=== PATIENT | male | born 1960 | race Caucasian/White ===

== ENCOUNTER 2019-11-15 10:33 | Outpatient (CLI) | payer MEDICARE, OTHER ==
[~2019-11-15 10:33] MED LIST: ASPI-605 PO; IBUP200C5 PO; TAMS-12 PO; VALS80TA2 PO
== END 2019-11-15 23:59 | disposition home or self-care (01) ==
LOC: MSC 10:33
PROVIDERS: ATTEND Anesthesiology
DX: M50.10 Cervical disc disorder with radiculopathy, unspecified cervical region (principal); M79.602 Pain in left arm; M46.96 Unspecified inflammatory spondylopathy, lumbar region; M47.27 Other spondylosis with radiculopathy, lumbosacral region; M51.26 Other intervertebral disc displacement, lumbar region; E11.9 Type 2 diabetes mellitus without complications; I10 Essential (primary) hypertension; M79.605 Pain in left leg; M79.604 Pain in right leg; Z79.1 Long term (current) use of non-steroidal anti-inflammatories (NSAID)

== ENCOUNTER → 2020-04-17 | Outpatient (CLI) | payer MEDICARE, OTHER | END | disposition home or self-care (01) | LOC: MSC 10:20 | PROVIDERS: ATTEND Anesthesiology | DX: M50.10 Cervical disc disorder with radiculopathy, unspecified cervical region (principal); M46.96 Unspecified inflammatory spondylopathy, lumbar region; M51.26 Other intervertebral disc displacement, lumbar region; M47.27 Other spondylosis with radiculopathy, lumbosacral region; M79.2 Neuralgia and neuritis, unspecified; M79.606 Pain in leg, unspecified ==

== ENCOUNTER → 2020-05-08 | Outpatient (CLI) | payer MEDICARE, OTHER | END | disposition home or self-care (01) | LOC: MSC 13:55 | PROVIDERS: ATTEND Anesthesiology | DX: M50.10 Cervical disc disorder with radiculopathy, unspecified cervical region (principal); M46.96 Unspecified inflammatory spondylopathy, lumbar region; M51.26 Other intervertebral disc displacement, lumbar region; M47.27 Other spondylosis with radiculopathy, lumbosacral region; M79.2 Neuralgia and neuritis, unspecified; M79.606 Pain in leg, unspecified; Z79.1 Long term (current) use of non-steroidal anti-inflammatories (NSAID) ==

== ENCOUNTER 2020-11-27 10:23 | Outpatient (CLI) | payer MEDICARE, OTHER | END 2020-11-27 23:59 | disposition home or self-care (01) | LOC: MSC 10:23 | PROVIDERS: ATTEND Anesthesiology | DX: M51.26 Other intervertebral disc displacement, lumbar region (principal); M46.96 Unspecified inflammatory spondylopathy, lumbar region; M47.27 Other spondylosis with radiculopathy, lumbosacral region; M50.10 Cervical disc disorder with radiculopathy, unspecified cervical region; Z98.890 Other specified postprocedural states; M79.2 Neuralgia and neuritis, unspecified; M79.606 Pain in leg, unspecified; Z83.3 Family history of diabetes mellitus; Z82.49 Family history of ischemic heart disease and other diseases of the circulatory system; Z79.84 Long term (current) use of oral hypoglycemic drugs; Z79.891 Long term (current) use of opiate analgesic; Z79.1 Long term (current) use of non-steroidal anti-inflammatories (NSAID); Z79.899 Other long term (current) drug therapy ==

== ENCOUNTER 2021-10-15 09:30 | Outpatient (CLI) | payer MEDICARE, OTHER | END 2021-10-15 23:59 | disposition home or self-care (01) | LOC: MSC 09:30 | PROVIDERS: ATTEND Anesthesiology | DX: M46.96 Unspecified inflammatory spondylopathy, lumbar region (principal); M51.26 Other intervertebral disc displacement, lumbar region; M47.27 Other spondylosis with radiculopathy, lumbosacral region; M50.10 Cervical disc disorder with radiculopathy, unspecified cervical region; M79.606 Pain in leg, unspecified; M79.2 Neuralgia and neuritis, unspecified; Z79.891 Long term (current) use of opiate analgesic; Z79.1 Long term (current) use of non-steroidal anti-inflammatories (NSAID); Z83.3 Family history of diabetes mellitus; Z82.49 Family history of ischemic heart disease and other diseases of the circulatory system; Z79.84 Long term (current) use of oral hypoglycemic drugs; Z79.899 Other long term (current) drug therapy ==

== ENCOUNTER 2024-11-03 09:21 | Inpatient (IN) | payer MEDICARE, OTHER ==
[~2024-11-03] VITALS: Ht 182.9 cm; Wt 99.1 kg
[2024-11-03] MEDS ORDERED: dexaMETHasone SOD PHOSPHATE 1 ML ONE (10:25)
[2024-11-03] MEDS ORDERED: VANCOMYCIN 1 GM VIAL ONE (10:25)
[2024-11-03] MEDS ORDERED: LIDOCAINE 2%-EPI 1:100,000 30 ML VIAL ONE (10:25)
[2024-11-03] MEDS ORDERED: LABETALOL HCL IV 100MG VIAL ONE (10:51)
[2024-11-03] MEDS ORDERED: SEVOFLURANE 250 ML BOTTLE IH ONE (10:51)
[2024-11-03] MEDS ORDERED: IV NS 0.9% 1,000 ML IV PRN (13:30)
[2024-11-03] MEDS ORDERED: ONDANSETRON HCL/PF 4 MG/2 ML VIAL IV PRN (13:30)
[2024-11-03] MEDS ORDERED: hydrALAZINE HCL IV 20 MG VIAL IV PRN (13:30)
[2024-11-03] MEDS ORDERED: ACETAMINOPHEN 325 MG TABLET PO PRN (13:30)
[2024-11-03] MEDS: ACETAMINOPHEN 325 MG TABLET PO PRN (15:41)
[2024-11-03 16:00] VITALS: BP 128/68; TEMP 97.4; O2SAT 98
[2024-11-03] MEDS ORDERED: DEXTROSE 50%-WATER 50 ML DISP.SYRIN IV PRN (18:00)
[2024-11-03] MEDS: HYDROMORPHONE INJ 2 MG/ML DISP.SYRIN IV PRN (19:05)
[2024-11-03 20:00] VITALS: BP 132/71; TEMP 98.3; O2SAT 99
[2024-11-03] MEDS: VANCOMYCIN 1 GM in IV D5W 250ml IV SCH (21:10)
[2024-11-03] MEDS: TAMSULOSIN 0.4 MG CAP.SR.24H PO SCH (21:11)
[2024-11-03] MEDS: BLOOD SUGAR DIAGNOSTIC 1 EACH STRIP IN SCH (21:24)
[2024-11-03] MEDS: INSULIN REGULAR, HUMAN 100 UNIT/ML 3 ML VIAL SQ PRN (21:30)
[2024-11-04 06:53] LABS: BASOPHILS % (AUTO) 0.1 % (0.0-2.0); EOSINOPHILS % (AUTO) 0.2 % (0.0-6.0); HEMATOCRIT 38 % (39-51); HEMOGLOBIN 13.2 g/dL (13.5-17.5); LYMPHOCYTES # (AUTO) 1.3 K/uL (0.8-4.8); LYMPHOCYTES % (AUTO) 8.4 % (20.0-44.0); MEAN CORPUSCULAR HEMOGLOBIN 32 PG (26.0-33.0); MEAN CORPUSCULAR HGB CONC 35 g/dl (31.0-36.0); MEAN CORPUSCULAR VOLUME 90 fL (80-96); MONOCYTES # (AUTO) 0.7 K/uL (0.1-1.30); MONOCYTES % (AUTO) 4.4 % (2.0-12.0); NEUTROPHILS # (AUTO) 13.5 K/uL (1.8-8.9); NEUTROPHILS % (AUTO) 86.9 % (43.0-81.0); PLATELET COUNT (AUTO) 245 K/uL (150-450); RED BLOOD CELL COUNT(AUTO) 4.19 MIL/uL (4.5-6.0); RED CELL DISTRIBUTION WIDTH 12.9 % (11.5-15.0); WHITE BLOOD COUNT (AUTO) 15.6 K/uL (4.3-11.0)
[2024-11-04 07:06] LABS: ALBUMIN 3.7 g/dL (3.4-5.0); BILIRUBIN,TOTAL 0.6 mg/dL (0.2-1.0); CALCIUM, SERUM 8.7 mg/dL (8.5-10.1); CREATININE 1.3 mg/dL (0.6-1.3); MAGNESIUM 1.9 mg/dL (1.8-2.4); PHOSPHORUS 2.8 mg/dL (2.5-4.9); POTASSIUM 3.4 mmol/L (3.5-5.1)
[2024-11-04] MEDS: POTASSIUM CHLORIDE 20 MEQ TAB.PRT.SR PO ONE (07:45)
[2024-11-04 08:00] VITALS: BP 131/62; TEMP 97.5; O2SAT 97
[2024-11-04] MEDS: ASPIRIN EC 81 MG TABLET.DR PO SCH (09:05)
[2024-11-04 09:06] VITALS: BP 131/62
[2024-11-04] MEDS: VALSARTAN 80 MG TABLET PO SCH (09:06)
== END 2024-11-04 11:00 | disposition home health service (06) | DRG 908 ==
LOC: DS 09:21 → MED 13:13
PROVIDERS: ADMIT Internal Medicine; ATTEND Internal Medicine
PROC: 0NSR04Z Reposition Maxilla with Internal Fixation Device, Open Approach (ICD-10-PCS; principal; 2024-11-03 13:00)
DX: T86.831 Bone graft failure (principal); S02.40CK Maxillary fracture, right side, subsequent encounter for fracture with nonunion; S02.40DK Maxillary fracture, left side, subsequent encounter for fracture with nonunion; M27.2 Inflammatory conditions of jaws; E78.5 Hyperlipidemia, unspecified; E11.9 Type 2 diabetes mellitus without complications; I10 Essential (primary) hypertension; M60.88 Other myositis, other site; M27.49 Other cysts of jaw; D16.4 Benign neoplasm of bones of skull and face; N40.0 Benign prostatic hyperplasia without lower urinary tract symptoms; X58.XXXD Exposure to other specified factors, subsequent encounter; Y83.2 Surgical operation with anastomosis, bypass or graft as the cause of abnormal reaction of the patient, or of later complication, without mention of misadventure at the time of the procedure; Y92.009 Unspecified place in unspecified non-institutional (private) residence as the place of occurrence of the external cause; Z82.49 Family history of ischemic heart disease and other diseases of the circulatory system; Z83.3 Family history of diabetes mellitus
CPT/HCPCS: 36415; 80053-TC; 82962-TC; 83735-TC; 84100-TC; 85025-TC; 88305-TC; 88311-TC; A4223; A4338; C1713; G0378; J0461; J0690; J1100; J1171; J1815; J2704; J3370; J3490; J7050; J7060

== ENCOUNTER 2025-04-28 09:06 | Inpatient (IN) | payer MEDICARE, OTHER ==
[~2025-04-28] VITALS: Ht 182.9 cm; Wt 95.3 kg
[2025-04-28 09:59] LABS: INR 1.18 (0.91-1.10)
[2025-04-28] MEDS ORDERED: dexaMETHasone SOD PHOSPHATE 1 ML ONE (11:25)
[2025-04-28] MEDS ORDERED: LIDOCAINE 2%-EPI 1:100,000 30 ML VIAL ONE (11:25)
[2025-04-28] MEDS ORDERED: VANCOMYCIN 1 GM VIAL ONE (11:25)
[2025-04-28] MEDS ORDERED: FENTANYL PF 250MCG/5ML AMPUL ONE (12:31)
[2025-04-28] MEDS ORDERED: ONDANSETRON HCL/PF 4 MG/2 ML VIAL IVP PRN (15:00)
[2025-04-28] MEDS ORDERED: ACETAMINOPHEN 325 MG TABLET PO PRN (15:00)
[2025-04-28 16:00] VITALS: BP 125/85; TEMP 98; O2SAT 98
[2025-04-28 16:30] VITALS: BP 131/78; TEMP 98; O2SAT 98
[2025-04-28] MEDS: HYDROMORPHONE 1 MG/1 ML DISP.SYRIN IV PRN (16:36)
[2025-04-28] MEDS: IV NS 0.9% 1,000 ML IV PRN (16:37)
[2025-04-28] MEDS: VALSARTAN 80 MG TABLET PO SCH (16:39)
[2025-04-28 16:45] VITALS: BP 140/80; TEMP 98; O2SAT 98
[2025-04-28 17:15] VITALS: BP 130/78; TEMP 98.2; O2SAT 97
[2025-04-28 20:00] VITALS: BP 123/70; TEMP 97.5; O2SAT 96
[2025-04-28 20:21] VITALS: BP 135/78; TEMP 98; O2SAT 98
[2025-04-28] MEDS: TAMSULOSIN 0.4 MG CAP.SR.24H PO SCH (21:19)
[2025-04-28] MEDS: VANCOMYCIN 1 GM in IV D5W 250ml IV SCH (22:08)
[2025-04-29 08:00] VITALS: BP 107/60; TEMP 97.9; O2SAT 97
[2025-04-29] MEDS: ASPIRIN EC 81 MG TABLET.DR PO SCH (08:15)
[2025-04-29 08:18] VITALS: BP 107/60; TEMP 97.9; O2SAT 97
== END 2025-04-29 11:00 | disposition home or self-care (01) | DRG 908 ==
LOC: DS 09:06 → MED 14:10
PROVIDERS: ADMIT Internal Medicine; ATTEND Internal Medicine
PROC: 0NSR0ZZ Reposition Maxilla, Open Approach (ICD-10-PCS; 2025-04-28)
PROC: 0N5R0ZZ Destruction of Maxilla, Open Approach (ICD-10-PCS; 2025-04-28)
PROC: 0N5T0ZZ Destruction of Right Mandible, Open Approach (ICD-10-PCS; 2025-04-28)
PROC: 0NUR07Z Supplement Maxilla with Autologous Tissue Substitute, Open Approach (ICD-10-PCS; 2025-04-28)
PROC: 0NPW04Z Removal of Internal Fixation Device from Facial Bone, Open Approach (ICD-10-PCS; principal; 2025-04-28 12:30)
DX: T86.831 Bone graft failure (principal); S02.40CK Maxillary fracture, right side, subsequent encounter for fracture with nonunion; T84.69XA Infection and inflammatory reaction due to internal fixation device of other site, initial encounter; T84.318A Breakdown (mechanical) of other bone devices, implants and grafts, initial encounter; E78.5 Hyperlipidemia, unspecified; E11.9 Type 2 diabetes mellitus without complications; I10 Essential (primary) hypertension; N40.0 Benign prostatic hyperplasia without lower urinary tract symptoms; Z87.891 Personal history of nicotine dependence; Y83.8 Other surgical procedures as the cause of abnormal reaction of the patient, or of later complication, without mention of misadventure at the time of the procedure; D16.5 Benign neoplasm of lower jaw bone; Z82.49 Family history of ischemic heart disease and other diseases of the circulatory system; Z83.3 Family history of diabetes mellitus; Y83.2 Surgical operation with anastomosis, bypass or graft as the cause of abnormal reaction of the patient, or of later complication, without mention of misadventure at the time of the procedure; Y92.009 Unspecified place in unspecified non-institutional (private) residence as the place of occurrence of the external cause
CPT/HCPCS: 36415; 82962-TC; 85610-TC; 85730-TC; 88300-TC; 88305-TC; 88311-TC; A4217; A4223; A4338; C1713; G0378; J0360; J0690; J1100; J1171; J2704; J3010; J3373; J3490; J7030; J7060